=== PATIENT | female | born 2000 | race Caucasian/White ===

== ENCOUNTER → 2021-07-13 17:14 | Observation (INO) ==
[2021-07-13 14:05] LABS: Bacteria,Urine Few per hpf (None-Few); Bilirubin,Urine Negative (Negative); Blood,Urine Negative (Negative); Clarity,Urine Clear (Clear); Color,Urine Light-Yellow (Yellow); Glucose,Urine (UA) 300 mg/dL (Normal); Ketones,Urine Negative (Negative); Leukocyte Esterase,Urine Trace (Negative); Mucus,Urine Few per lpf (None-Few); Nitrite,Urine Negative (Negative); PH,Urine 6.5 pH Units (5.0-8.0); Protein,Urine Trace mg/dL (Neg-Trace); RBC,Urine 0-3 per hpf (0-3); Specific Gravity,Urine 1.024 (1.010-1.025); Squamous Epithelial Cell,Urine Moderate per hpf (None-Few); Urobilinogen,Urine Normal (Normal)
[2021-07-13 14:57] LABS: Basophils # 0.1 K/mcL (0.0-0.2); Basophils % 0.4 %; Eosinophils # 0.1 K/mcL (0.0-0.6); Eosinophils % 0.9 %; Hematocrit 33.2 % (35.3-44.9); Hemoglobin 11.3 g/dL (11.5-15.4); Lymphocytes # 2.3 K/mcL (0.6-4.6); Lymphocytes % 16.1 %; Mean Corpuscular Hemoglobin 30.8 pg (28.0-33.3); Mean Corpuscular Volume 90.5 fL (83.0-100.0); Mean Platelet Volume 10.3 fL (9.4-12.4); Monocytes # 1.1 K/mcL (0.0-1.3); Monocytes % 7.9 %; Neutrophils # 10.2 K/mcL (1.6-8.9); Platelet Count 274 K/mcL (140-400); Red Blood Count 3.67 M/mcL (3.82-4.97); Segmented Neutrophils % 72.7 %; White Blood Count 14.1 K/mcL (4.3-11.1)
[2021-07-13 14:59] LABS: Alanine Aminotransferase 27 Units/L (7-52); Albumin 3.2 g/dL (3.5-5.7); Albumin/Globulin Ratio 0.9 (1.1-2.2); Alkaline Phosphatase 111 Units/L (34-104); Aspartate Amino Transferase 16 Units/L (13-39); BUN/Creatinine Ratio 16 (6-26); Bilirubin,Total 0.2 mg/dL (0.3-1.0); Blood Urea Nitrogen 9 mg/dL (6-20); Calcium 8.9 mg/dL (8.6-10.3); Carbon Dioxide 22 mEq/L (23-29); Chloride 104 mEq/L (98-107); Globulin 3.5 g/dL (2.4-3.5); Glucose 88 mg/dL (70-105); Osmolality,Calculated 276 (280-300); Potassium 4.1 mEq/L (3.5-5.1); Sodium 134 mEq/L (136-145); Total Protein 6.7 g/dL (6.4-8.9); eGFR For African Americans > 60 (> 60); eGFR For Non-African Americans > 60 (> 60)
[2021-07-13 15:41] LABS: Amphetamine Screen,Urine Negative ng/mL (Cutoff=1000); Barbiturate Screen,Urine Negative ng/mL (Cutoff=200); Benzodiazepines Screen,Urine Negative ng/mL (Cutoff=200); Cannabinoid Screen,Urine Negative ng/mL (Cutoff = 50); Cocaine Screen,Urine Negative ng/mL (Cutoff= 300); Opiate Screen,Urine Negative ng/mL (Cutoff=300); Phencyclidine Screen,Urine Negative ng/mL (Cutoff=25)
== END | disposition home or self-care (01) ==
LOC: 1NENULAB
PROVIDERS: ADMIT Advanced Practice Midwife; ATTEND Advanced Practice Midwife

== ENCOUNTER 2021-10-05 05:52 | Inpatient (IN) ==
[2021-10-05] MEDS ORDERED: Metoclopramide 10 MG/2 ML VIAL IVP PRN (06:34)
[2021-10-05] MEDS ORDERED: Famotidine 20 MG/2 ML VIAL IVP PRN (06:34)
[2021-10-05] MEDS ORDERED: Azithromycin 500 MG in 0.9 % Sodium Chloride 250 ML IVPB PRN (06:34)
[2021-10-05] MEDS ORDERED: Ondansetron 4 MG/2 ML VIAL IVP PRN (06:34)
[2021-10-05] MEDS ORDERED: *HR* Nalbuphine 10 MG/ML AMPUL IV PRN (06:34)
[2021-10-05] MEDS ORDERED: Naloxone 0.4 MG/ML INJ IVP PRN (06:34)
[2021-10-05] MEDS ORDERED: miSOPROStoL 25 MCG TABLET PO PRN (06:37)
[2021-10-05] MEDS ORDERED: EPHEDrine 50 MG/ML VIAL IVP PRN (07:38)
[2021-10-05] MEDS ORDERED: Oxytocin 30 UNIT/503 ML BAG IVC SCH (07:45)
[2021-10-05 07:49] LABS: Basophils # 0.1 K/mcL (0.0-0.2); Basophils % 0.5 %; Eosinophils # 0.1 K/mcL (0.0-0.6); Eosinophils % 0.9 %; Hematocrit 32.3 % (35.3-44.9); Immature Granulocytes % 1.7 % (0-4); Lymphocytes # 2.1 K/mcL (0.6-4.6); Lymphocytes % 15.8 %; Mean Corpuscular Hemoglobin 25.1 pg (28.0-33.3); Mean Platelet Volume 10.9 fL (9.4-12.4); Monocytes # 0.9 K/mcL (0.0-1.3); Monocytes % 7.1 %; Neutrophils # 9.6 K/mcL (1.6-8.9); Nucleated Red Blood Cells 0.3 /100 WBC (0); Platelet Count 212 K/mcL (140-400); Red Blood Count 3.99 M/mcL (3.82-4.97); Red Cell Distribution Width 15.4 % (11.5-14.5); White Blood Count 12.9 K/mcL (4.3-11.1)
[2021-10-05] MEDS: Ringers Solution, Lactated 1,000 ML IVC SCH ×2 (07:53→15:10)
[2021-10-05 09:26] LABS: Amphetamine Screen,Urine Negative ng/mL (Cutoff=1000); Barbiturate Screen,Urine Negative ng/mL (Cutoff=200); Benzodiazepines Screen,Urine Negative ng/mL (Cutoff=200); Cannabinoid Screen,Urine Negative ng/mL (Cutoff = 50); Cocaine Screen,Urine Negative ng/mL (Cutoff= 300); Opiate Screen,Urine Negative ng/mL (Cutoff=300); Phencyclidine Screen,Urine Negative ng/mL (Cutoff=25)
[2021-10-05] MEDS: Epidural Premix (fent/bupiv) 110 ML EP SCH ×2 (15:11→15:12)
[2021-10-05] MEDS ORDERED: Lidocaine/EPI 1:200k 2% PF 20 ML VIAL ONE (16:34)
[2021-10-05] MEDS ORDERED: Famotidine 20 MG/2 ML VIAL IVP ONE (22:08)
[2021-10-05] MEDS ORDERED: Ibuprofen 600 MG TABLET PO ONE (22:09)
[2021-10-06] MEDS ORDERED: Lanolin 7 G OINT...G. TP PRN (00:47)
[2021-10-06] MEDS ORDERED: Ondansetron ODT 4 MG TAB.RAPDIS SL PRN (00:47)
[2021-10-06] MEDS ORDERED: Benzocaine/Menthol 56 GM AEROSOL SPRAY TP PRN (00:47)
[2021-10-06] MEDS ORDERED: *HR* OxyCODONE Immed Rel 5 MG TABLET PO PRN (00:47)
[2021-10-06] MEDS ORDERED: *HR* Oxytocin 10 UNIT/ML VIAL IM ONE (00:47)
[2021-10-06] MEDS: Acetaminophen 325 MG TABLET PO SCH ×4 (03:00→17:26)
[2021-10-06] MEDS: Ibuprofen 600 MG TABLET PO SCH ×4 (03:00→17:26)
[2021-10-06 07:29] VITALS: O2SAT 99
[2021-10-06] MEDS: Prenatal Vit/FA 1 EACH TABLET PO SCH (08:03)
[2021-10-07] MEDS: Acetaminophen 325 MG TABLET PO SCH ×2 (02:11→09:41)
[2021-10-07] MEDS: Ibuprofen 600 MG TABLET PO SCH ×2 (02:11→09:40)
[2021-10-07 07:32] VITALS: BP 127/81; PULSE 73; TEMP 97.8
[2021-10-07] MEDS: Prenatal Vit/FA 1 EACH TABLET PO SCH (09:40)
[2021-10-07 12:06] LABS: Basophils # 0.1 K/mcL (0.0-0.2); Basophils % 0.4 %; Eosinophils # 0.2 K/mcL (0.0-0.6); Eosinophils % 1.7 %; Hemoglobin 8.7 g/dL (11.5-15.4); Immature Granulocytes % 1.7 % (0-4); Lymphocytes % 14.6 %; Mean Corpuscular HGB Conc 31.1 g/dL (31.6-35.5); Mean Corpuscular Hemoglobin 24.8 pg (28.0-33.3); Mean Corpuscular Volume 79.8 fL (83.0-100.0); Mean Platelet Volume 10.6 fL (9.4-12.4); Monocytes % 7.1 %; Neutrophils # 10.4 K/mcL (1.6-8.9); Nucleated Red Blood Cells 0.1 /100 WBC (0); Platelet Count 269 K/mcL (140-400); Red Blood Count 3.51 M/mcL (3.82-4.97); Red Cell Distribution Width 15.9 % (11.5-14.5); Segmented Neutrophils % 74.5 %; White Blood Count 13.9 K/mcL (4.3-11.1)
== END 2021-10-07 18:05 | disposition home or self-care (01) | DRG 560 ==
LOC: 1NENULAB 05:52 → 1NENUOBS 22:07
PROVIDERS: ADMIT Advanced Practice Midwife; ATTEND Advanced Practice Midwife